=== PATIENT | female | born 1985 | race Caucasian/White ===

== ENCOUNTER 2016-03-24 05:53 | Day surgery (SDC) | payer BC ==
[2016-03-21 13:29] LABS: BASOPHILS % 0.5 % (0.0-2.0); EOSINOPHILS % 0.8 % (0.0-7.0); HEMATOCRIT 38.7 % (37.0-47.0); HEMOGLOBIN 13.4 g/dl (12.0-16.0); LYMPHOCYTES # 2.4 10^3/ul (0.8-2.9); LYMPHOCYTES % 39.8 % (15.0-51.0); MEAN CORPUSCULAR HEMOGLOBIN 30.7 pg (29.0-33.0); MEAN CORPUSCULAR HGB CONC 34.5 g/dl (32.0-37.0); MEAN CORPUSCULAR VOLUME 88.9 fl (82.0-101.0); MEAN PLATELET VOLUME 7.7 fl (7.4-10.4); MONOCYTE # 0.5 10^3/ul (0.3-0.9); MONOCYTES % 7.8 % (0.0-11.0); NEUTROPHILS % 51.1 % (39.0-77.0); PLATELET COUNT 383 10^3/UL (140-440); RED BLOOD COUNT 4.35 10^6/ul (4.20-5.40); RED CELL DISTRIBUTION WIDTH 12.8 % (11.5-14.5); UNCORRECTED WBC 5.9 10^3/ul (4.8-10.8); WHITE BLOOD COUNT 5.9 10^3/ul (4.8-10.8)
[2016-03-21 13:37] LABS: CONDITION 1
[2016-03-21 13:40] LABS: ALBUMIN 4.8 g/dl (3.3-4.9)
[2016-03-21 13:41] LABS: POTASSIUM 3.9 mmol/L (3.5-5.1)
[2016-03-21 13:43] LABS: ALBUMIN/GLOBULIN RATIO 1.2; BILIRUBIN,INDIRECT 0.2 mg/dl (0-1.1); BILIRUBIN,TOTAL 0.2 mg/dl (0.2-1.3); TOTAL PROTEIN 8.8 g/dl (6.1-8.1)
[2016-03-21 13:46] LABS: CALCIUM 9.4 mg/dl (8.4-10.2); CREATININE 0.6 mg/dl (0.44-1.00)
[2016-03-21 13:47] LABS: INR 0.92; PROTIME 12.4 Sec (12.2-14.2)
[2016-03-21 13:48] LABS: PARTIAL THROMBOPLASTIN TIME 29.3 Sec (25.0-35.0)
--- NOTE | 2016-03-23 17:52 | HP ---
DATE OF ADMISSION: 03/24/2016 HISTORY OF PRESENT ILLNESS: The patient is a 31-year-old lady well known to me from previous follow up, with recurrent symptoms of nasal obstruction and persistent symptoms, of deviated nasal septum i s being admitted on an elective basis for surgery per Dr. Iglesias. REVIEW OF SYSTEMS: HEAD: Occasional headaches. No focal weakness or numbness. EYES: No blurry vision or glaucoma. ENT: As above. NECK: No history of thyroid disease. CHEST: No cough or wheezing or asthma. No history of smoking. CARDIOVASCULAR: No PND, orthopnea, palpitation. GASTROINTESTINAL: History of constipation. History of mesentery calcification on CT a year and a h [facility]cc ago. GENITOURINARY: No dysuria, hematuria, kidney stones. Sleep normal. No history of sleep apnea. MEDICATIONS: Flonase inhaler as needed. ALLERGIES: NO KNOWN ALLERGIES. FAMILY HISTORY: Patient's maternal grandmother had breast cancer. Her 3 brothers normal and health y. Father and mother are normal. PHYSICAL EXAMINATION: GENERAL: The patient is a very pleasant lady in no acute distress. VITAL SIGNS: Blood pressure 110/70, respiratory 20 minute. HEENT: Head normocephalic. No pallor, cyanosis, or icterus. Tongue is moist. NECK: Supple. No thyromegaly, bruits or lymphadenopathy. LUNGS: Clinically clear. HEART: S1, S2 heard with no definite gallops or murmurs. ABDOMEN: Soft, nontender, no hepatosplenomegaly. EXTREMITIES: No edema. Pedal pulsations 2+ bilaterally. Homans sign is negative. NEUROLOGIC: No localizing or lateralizing signs. PELVIC/RECTAL/BREASTS: Deferred at patient's request. LABORATORY DATA: Initial WBC count 5.9, hematocrit 38.7, platelet count 383,000. PT/INR is 0.92, P TT is 29.3. Sodium 144, potassium 3.9, BUN 12, creatinine 0.6, glucose 82. Beta hCG quantitative i s negative. IMPRESSION: Symptomatic deviated nasal septum for elective repair per Dr. Iglesias. PLAN: Patient's overall medical condition is stable for the proposed surgery. Dictated By: JESSIE SAEZ MD SR/NTS Conf#: [id number] DID#: [id number] CC: EDNA IGLESIAS MD;*[facility]*
[2016-03-24] VITALS (14 sets, daily range): BP systolic 94–112; BP diastolic 55–76; PULSE 56–85; RESP 16–25; Ht 157.5 cm; Wt 63.1 kg
[~2016-03-24] VITALS: Ht 157.5 cm; Wt 63.1 kg
[~2016-03-24 05:53] MED LIST: ALBU8.5H5 INH; AZIT250T94 PO; CYCL-319 PO; D-ME118S6 PO; GUAI118L94 PO; LISD30CA5
[2016-03-24] MEDS ORDERED: LIDOCAINE 1%/EPI (MDV) 20 ML INJ ONE (06:50)
[2016-03-24] MEDS ORDERED: BACITRACIN/POLYMYXIN 28.35 GM OINT TOP ONE (06:51)
[2016-03-24] MEDS ORDERED: COCAINE 4% 4 ML TOP ONE (06:51)
[2016-03-24] MEDS ORDERED: CEFAZOLIN 1 GM INJ ONE (07:00)
[2016-03-24] MEDS ORDERED: PROPOFOL 100 ML ONE (07:11)
[2016-03-24] MEDS ORDERED: FENTAnyl 50 MCG/ML VIAL ONE (07:12)
[2016-03-24] MEDS ORDERED: ROCURONIUM 50 MG INJ ONE (07:12)
[2016-03-24] MEDS ORDERED: LIDOCAINE 2% (SDV) 5 ML INJ ONE (07:12)
[2016-03-24] MEDS ORDERED: ACETAMINOPHEN 1000MG/100ML IV 100 ML ONE (07:13)
[2016-03-24] MEDS ORDERED: MIDAZOLAM 1 MG/ML 2 ML INJ ONE (07:13)
[2016-03-24] MEDS ORDERED: hydrALAzine 20 MG INJ IV PRN (08:00)
[2016-03-24] MEDS ORDERED: FENTAnyl 50 MCG/ML VIAL IV PRN ×3 (08:00)
[2016-03-24] MEDS ORDERED: METOCLOPRAMIDE 10 MG INJ IV PRN (08:00)
[2016-03-24] MEDS ORDERED: MEPERIDINE 25 MG INJ IV PRN (08:00)
[2016-03-24] MEDS ORDERED: HYDROmorphONE (0.2 MG/ML) 10ML SYG IV PRN ×3 (08:00)
[2016-03-24] MEDS ORDERED: ONDANSETRON 4 MG INJ IV PRN ×2 (08:00→09:30)
[2016-03-24] MEDS ORDERED: LABETALOL HCL 20MG INJ IV PRN (08:00)
[2016-03-24] MEDS ORDERED: OXYCODONE/ACETAMINOPHEN (5/325) TAB PO PRN (08:00)
[2016-03-24] MEDS ORDERED: LABETALOL HCL 20MG INJ ONE (08:08)
[2016-03-24] MEDS ORDERED: ONDANSETRON 4 MG INJ ONE (08:21)
[2016-03-24] MEDS ORDERED: DEXAMETHASONE 4 MG/ML 1 ML INJ ONE (08:21)
[2016-03-24] MEDS ORDERED: ESMOLOL 10 ML ONE (08:49)
--- NOTE | 2016-03-24 08:57 | OPPN ---
Date/Time of Note Date/Time of Note DATE: 03/24/16 TIME: 08:54 Operative/Procedure Note Pre-Operative Diagnosis nasal septal deviation, turbinate hypertrophy, valve collapse Post-Operative Diagnosis same Procedure septoplasty, bilateral turbinate reduction, valve repair Surgeon: EDNA IGLESIAS MD Findings nasal obstruction Blood Usage/Administration none Implants/Grafts: Not applicable Estimated blood loss: minimal Drains: Not applicable Specimens septo and turb Complications: None Anesthesia type: general EDNA IGLESIAS MD Mar 24, 2016 08:57
[2016-03-24] MEDS ORDERED: LACTATED RINGER'S 1,000 ML IV SCH (09:02)
[2016-03-24] MEDS ORDERED: HYDROCODONE/APAP (5/325) TAB PO PRN (09:30)
[2016-03-24] MEDS ORDERED: HYDROmorphONE 1 MG/ML SYG IV PRN (09:30)
--- NOTE | 2016-03-27 12:42 | OPR ---
DATE OF OPERATION: 03/24/2016 PREOPERATIVE DIAGNOSIS: Nasal septal deviation, turbinate hypertrophy, nasal valve collapse. POSTOPERATIVE DIAGNOSIS: Nasal septal deviation, turbinate hypertrophy, nasal valve collapse. OPERATION PERFORMED: 1. Septoplasty. 2. Bilateral inferior turbinate reduction. 3. Bilateral valve repair. INDICATION FOR PROCEDURE. The patient has history of nasal obstruction, nasal deformity, unable to breathe. Failed medical management. DESCRIPTION OF PROCEDURE: The patient was consented, placed supine on the operating table. After i nduction of general anesthesia, the table was turned 90 degrees. Nose injected with 10 mL of 1% lid ocaine, epinephrine, 4% cocaine soaked pledgets were applied. A left hemitransfixion incision was m jack. Mucosa was elevated bilaterally. Deviated portions of septum and submucosa resected. The inf erior turbinates were medialized. Mucosa was elevated, submucosa was cauterized, partially resected and lateralized. A 4 x 4 x 8 mm piece of cartilaginous graft was placed on the internal nasal valv e angle area and sutured to the septum using 4-0 chromic suture. At this point, medial and lateral osteotomies were performed to straighten out the nasal dorsum. Intranasal incisions were closed wit h 4-0 chromic. Ra bivalve splints were placed. Nasal packing was applied. Procedure was compl eted. The patient was awakened, extubated to recovery in satisfactory condition. Dictated By: EDNA GRACIA/BARBARA Conf#: [id number] DID#: [id number] CC: JESSIE SAEZ MD;*[facility]*
== END 2016-03-24 10:52 | disposition home or self-care (01) ==
LOC: SDS 05:53
PROVIDERS: ATTEND Internal Medicine
DX: J34.2 Deviated nasal septum (principal); J34.3 Hypertrophy of nasal turbinates
CPT/HCPCS: 30140; 30520; 80053; 84702; 84703; 85025; 85610; 85730; J0690; J1100; J1170; J2250; J2405; J3010; J0131

== ENCOUNTER → 2016-04-22 | Outpatient (CLI) | payer BC ==
[2016-04-22 15:27] LABS: BASOPHILS % 0.4 % (0.0-2.0); EOSINOPHILS # 0.1 10^3/ul (0.0-0.5); EOSINOPHILS % 0.9 % (0.0-7.0); HEMATOCRIT 36.8 % (37.0-47.0); HEMOGLOBIN 12.5 g/dl (12.0-16.0); LYMPHOCYTES # 2.5 10^3/ul (0.8-2.9); LYMPHOCYTES % 28.3 % (15.0-51.0); MEAN CORPUSCULAR HEMOGLOBIN 30.7 pg (29.0-33.0); MEAN CORPUSCULAR VOLUME 90.1 fl (82.0-101.0); MEAN PLATELET VOLUME 8.1 fl (7.4-10.4); MONOCYTE # 0.8 10^3/ul (0.3-0.9); MONOCYTES % 8.7 % (0.0-11.0); NEUTROPHIL # 5.4 10^3/ul (1.6-7.5); NEUTROPHILS % 61.7 % (39.0-77.0); PLATELET COUNT 356 10^3/UL (140-440); RED BLOOD COUNT 4.09 10^6/ul (4.20-5.40); RED CELL DISTRIBUTION WIDTH 12.6 % (11.5-14.5); UNCORRECTED WBC 8.7 10^3/ul (4.8-10.8); WHITE BLOOD COUNT 8.7 10^3/ul (4.8-10.8)
[2016-04-22 15:35] LABS: CONDITION 1
[2016-04-22 15:37] LABS: ALBUMIN 4.4 g/dl (3.3-4.9)
[2016-04-22 15:38] LABS: POTASSIUM 4.2 mmol/L (3.5-5.1)
[2016-04-22 15:40] LABS: ALBUMIN/GLOBULIN RATIO 1.33; BILIRUBIN,INDIRECT 0.3 mg/dl (0-1.1); BILIRUBIN,TOTAL 0.3 mg/dl (0.2-1.3); CREATININE 0.61 mg/dl (0.44-1.00); TOTAL PROTEIN 7.7 g/dl (6.1-8.1)
[2016-04-22 16:29] LABS: ADD UMIC YES; URINE BILIRUBIN (Dip) NEGATIVE (NEGATIVE); URINE BLOOD (Dip) TRACE (NEGATIVE); URINE COLOR LT. YELLOW (YELLOW); URINE GLUCOSE (Dip) NEGATIVE (NEGATIVE); URINE KETONES (Dip) NEGATIVE (NEGATIVE); URINE LEUKOCYTE ESTERASE (Dip) TRACE (NEGATIVE); URINE NITRITE (Dip) NEGATIVE (NEGATIVE); URINE TOTAL PROTEIN (Dip) NEGATIVE (NEGATIVE); URINE UROBILINOGEN (Dip) 0.2 E.U./dL (0.1-1.0)
[2016-04-22 17:10] LABS: URINE RBCS 0-2 /HPF (0)
--- NOTE | 2016-04-23 16:43 | RADRPT ---
PROCEDURE: XR Lumbar Spine. CLINICAL INDICATION: Low back pain. TECHNIQUE: 3 views of the lumbar spine available for review COMPARISON: None available FINDINGS: There is a mild dextroscoliosis of the lumbar spine. There is normal mineralization, architecture and alignment. No fractures or osseous lesions are anel ntified. No subluxation is identified. The disk spaces are unremarkable. The facet joints are unr emarkable. The soft tissues are unremarkable. IMPRESSION: Mild dextroscoliosis Otherwise unremarkable examination. RPTAT: HGDB .Markus Soto MD, MD Date Time Electronically viewed and signed by .Markus Soto MD, on 04/23/2016 16:43 .B/
== END | disposition home or self-care (01) ==
LOC: LAB 14:53
PROVIDERS: ATTEND Internal Medicine
DX: D64.9 Anemia, unspecified (principal); N39.0 Urinary tract infection, site not specified; M54.9 Dorsalgia, unspecified
CPT/HCPCS: 72100; 80053; 81001; 81003; 85025

== ENCOUNTER → 2016-04-25 | Outpatient (CLI) | payer BC ==
[2016-04-25 17:13] LABS: ADD UMIC YES; URINE BILIRUBIN (Dip) NEGATIVE (NEGATIVE); URINE BLOOD (Dip) TRACE (NEGATIVE); URINE COLOR LT. YELLOW (YELLOW); URINE GLUCOSE (Dip) NEGATIVE (NEGATIVE); URINE KETONES (Dip) NEGATIVE (NEGATIVE); URINE LEUKOCYTE ESTERASE (Dip) NEGATIVE (NEGATIVE); URINE NITRITE (Dip) NEGATIVE (NEGATIVE); URINE TOTAL PROTEIN (Dip) NEGATIVE (NEGATIVE); URINE UROBILINOGEN (Dip) 0.2 E.U./dL (0.1-1.0)
[2016-04-25 17:51] LABS: URINE RBCS 0-2 /HPF (0)
== END | disposition home or self-care (01) ==
LOC: LAB 16:36
PROVIDERS: ATTEND Internal Medicine
DX: N39.0 Urinary tract infection, site not specified (principal)
CPT/HCPCS: 81001; 81003; 87086

== ENCOUNTER 2017-01-22 10:44 | Emergency (ER) | END 2017-01-22 17:18 | disposition home or self-care (01) | DX: M54.12 Radiculopathy, cervical region (principal) ==

== ENCOUNTER → 2018-02-19 | Outpatient (CLI) | END | disposition home or self-care (01) ==

== ENCOUNTER → 2018-05-14 | Outpatient (CLI) | payer BC ==
[~2018-05-14] MED LIST changes: +AZIT250T PO; -AZIT250T94 PO; -CYCL-319 PO; +CYCL10TA7 PO; +IBUP-1542 PO; +PRED20TA PO
== END | disposition home or self-care (01) ==
LOC: LAB 14:32
PROVIDERS: ATTEND Internal Medicine
DX: E34.9 Endocrine disorder, unspecified (principal)
CPT/HCPCS: 84144